=== PATIENT | female | born 1960 | race Hispanic/Latino ===

== ENCOUNTER → 2024-01-13 | Outpatient (CLI) | payer OTHER ==
[~2024-01-13] VITALS: Ht 162.6 cm; Wt 80.9 kg
[~2024-01-13] MED LIST: ACET-2743 PO; AEC81 PO; ATOR40TA69 PO; DOCU100T9 PO; ERGOCALCIFEROL PO; MECL-226 PO; METF-444 PO; METO25 PO; PROP225C8 PO; RIVA20TA PO; [UNRECOGNIZED DRUG - OTHER] PO
[2024-01-13 11:14] LABS: BASOPHILS # (AUTO) 0.05 K/uL (0.00-0.20); BASOPHILS % (AUTO) 0.8 % (0.0-5.0); EOSINOPHILS # (AUTO) 0.17 K/uL (0.00-0.70); EOSINOPHILS % (AUTO) 2.6 % (0.0-8.0); HEMATOCRIT 39.3 % (36-48); IMMATURE GRANULOCYTE ABSOLUTE 0.01 K/uL (0-1); LYMPHOCYTES # (AUTO) 2.2 K/uL (1.0-4.8); LYMPHOCYTES % (AUTO) 34.1 % (21.0-51.0); MEAN CORPUSCULAR HEMOGLOBIN 30.4 pg (27.0-33.0); MEAN CORPUSCULAR HGB CONC 33.6 g/dL (32.0-36.0); MEAN CORPUSCULAR VOLUME 90.6 fL (79-99); MONOCYTES # (AUTO) 0.4 K/uL (0.1-1.0); MONOCYTES % (AUTO) 6.2 % (3.0-13.0); NEUTROPHILS # (AUTO) 3.7 K/uL (1.8-7.7); NEUTROPHILS % (AUTO) 56.1 % (40.0-77.0); PLATELET COUNT (AUTO) 215 K/uL (130-400); RED BLOOD CELL COUNT(AUTO) 4.34 MIL/uL (4.00-5.50); RED CELL DISTRIBUTION WIDTH 12.7 % (11.0-15.5); WHITE BLOOD COUNT (AUTO) 6.6 K/uL (4.8-10.8)
[2024-01-13 11:23] LABS: CREATININE 0.9 mg/dL (0.5-1.0); POTASSIUM 4.6 mmol/L (3.5-5.1)
[2024-01-13 11:27] LABS: INR 1.13 (0.85-1.15); PROTHROMBIN TIME 13.2 SEC (9.6-11.6)
[2024-01-13 11:28] LABS: PARTIAL THROMBOPLASTIN TIME 41.6 SEC (26.3-35.5)
[2024-01-13 12:05] VITALS: BP 126/77; PULSE 77; RESP 19
== END | disposition home or self-care (01) ==
LOC: DAH 10:00 → EDSTATUS 01-18 08:00
PROVIDERS: ATTEND Internal Medicine Cardiovascular Disease
DX: I48.0 Paroxysmal atrial fibrillation (principal)
CPT/HCPCS: 36415; 80048; 85025; 85610; 85730; 93005

== ENCOUNTER → 2024-02-25 | Outpatient (CLI) | payer OTHER ==
[~2024-02-25] VITALS: Ht 165.1 cm; Wt 81.0 kg
[~2024-02-25] MED LIST changes: -ACET-2743 PO; +APIX5TAB PO; -MECL-226 PO; -PROP225C8 PO
[2024-02-25 09:09] LABS: BASOPHILS # (AUTO) 0.05 K/uL (0.00-0.20); BASOPHILS % (AUTO) 0.8 % (0.0-5.0); EOSINOPHILS # (AUTO) 0.18 K/uL (0.00-0.70); EOSINOPHILS % (AUTO) 2.8 % (0.0-8.0); HEMATOCRIT 39.3 % (36-48); IMMATURE GRANULOCYTE ABSOLUTE 0.02 K/uL (0-1); LYMPHOCYTES # (AUTO) 2.5 K/uL (1.0-4.8); LYMPHOCYTES % (AUTO) 39.6 % (21.0-51.0); MEAN CORPUSCULAR HEMOGLOBIN 30.3 pg (27.0-33.0); MEAN CORPUSCULAR HGB CONC 33.6 g/dL (32.0-36.0); MEAN CORPUSCULAR VOLUME 90.3 fL (79-99); MONOCYTES # (AUTO) 0.4 K/uL (0.1-1.0); MONOCYTES % (AUTO) 6.4 % (3.0-13.0); NEUTROPHILS # (AUTO) 3.2 K/uL (1.8-7.7); NEUTROPHILS % (AUTO) 50.1 % (40.0-77.0); PLATELET COUNT (AUTO) 214 K/uL (130-400); RED BLOOD CELL COUNT(AUTO) 4.35 MIL/uL (4.00-5.50); RED CELL DISTRIBUTION WIDTH 12.6 % (11.0-15.5); WHITE BLOOD COUNT (AUTO) 6.4 K/uL (4.8-10.8)
[2024-02-25 09:19] LABS: CREATININE 0.9 mg/dL (0.5-1.0); POTASSIUM 4.5 mmol/L (3.5-5.1)
[2024-02-25 09:29] LABS: INR 0.99 (0.85-1.15); PROTHROMBIN TIME 10.7 SEC (9.6-11.6)
[2024-02-25 09:30] LABS: PARTIAL THROMBOPLASTIN TIME 32.2 SEC (26.3-35.5)
[2024-02-25 09:39] VITALS: BP 132/82; PULSE 74; RESP 18
== END | disposition home or self-care (01) ==
LOC: DAH 10:00 → EDSTATUS 04-04 08:00
PROVIDERS: ATTEND Internal Medicine Cardiovascular Disease
DX: Z01.812 Encounter for preprocedural laboratory examination (principal); I48.0 Paroxysmal atrial fibrillation
CPT/HCPCS: 36415; 80048; 85025; 85610; 85730; 93005

== ENCOUNTER 2024-04-04 05:49 | Observation (INO) | payer OTHER ==
[2024-03-31 10:49] LABS: BASOPHILS # (AUTO) 0.05 K/uL (0.00-0.20); BASOPHILS % (AUTO) 1.1 % (0.0-5.0); EOSINOPHILS # (AUTO) 0.14 K/uL (0.00-0.70); HEMATOCRIT 39.6 % (36-48); IMMATURE GRANULOCYTE ABSOLUTE 0.01 K/uL (0-1); LYMPHOCYTES # (AUTO) 1.8 K/uL (1.0-4.8); LYMPHOCYTES % (AUTO) 38.7 % (21.0-51.0); MEAN CORPUSCULAR HEMOGLOBIN 30.3 pg (27.0-33.0); MEAN CORPUSCULAR HGB CONC 33.3 g/dL (32.0-36.0); MONOCYTES # (AUTO) 0.4 K/uL (0.1-1.0); MONOCYTES % (AUTO) 8.4 % (3.0-13.0); NEUTROPHILS # (AUTO) 2.3 K/uL (1.8-7.7); NEUTROPHILS % (AUTO) 48.6 % (40.0-77.0); PLATELET COUNT (AUTO) 216 K/uL (130-400); RED BLOOD CELL COUNT(AUTO) 4.35 MIL/uL (4.00-5.50); RED CELL DISTRIBUTION WIDTH 12.7 % (11.0-15.5); WHITE BLOOD COUNT (AUTO) 4.7 K/uL (4.8-10.8)
[2024-03-31 11:06] LABS: INR 1.01 (0.85-1.15); PROTHROMBIN TIME 10.9 SEC (9.6-11.6)
[2024-03-31 11:07] VITALS: BP 136/79; PULSE 85; RESP 19; TEMP 98
[2024-03-31 11:07] LABS: PARTIAL THROMBOPLASTIN TIME 32.2 SEC (26.3-35.5)
[2024-03-31 11:10] LABS: CREATININE 0.9 mg/dL (0.5-1.0)
[2024-04-04] VITALS (24 sets, daily range): BP systolic 87–130; BP diastolic 47–83; PULSE 65–79; RESP 13–18; TEMP 97.4–98.4; O2SAT 96
[~2024-04-04] VITALS: Ht 157.5 cm; Wt 79.6 kg
[~2024-04-04 05:49] MED LIST changes: -ERGOCALCIFEROL PO; -RIVA20TA PO; +vit d2 PO
[2024-04-04] MEDS: 0.9%NACL 1000ML 1,000 ML IV ONE (06:11)
[2024-04-04] MEDS ORDERED: dexaMETHasone SOD PHOSPHATE 10MG/ML 1ML VIAL ONE (07:09)
[2024-04-04] MEDS ORDERED: MIDAZOLAM HCL 1 MG/ML 2ML VIAL ONE (07:09)
[2024-04-04] MEDS ORDERED: SUCCINYLCHOLINE CHLORIDE 20 MG/ML 10 ML VIAL ONE (07:09)
[2024-04-04] MEDS ORDERED: GLYCOPYRROLATE 0.2 MG/ML 5 ML VIAL ONE (07:09)
[2024-04-04] MEDS ORDERED: ONDANSETRON 4MG INJ ONE (07:09)
[2024-04-04] MEDS ORDERED: LIDOCAINE PF 100MG/5ML (2%) SYRINGE 5ML ONE (07:09)
[2024-04-04] MEDS ORDERED: NEOSTIGMINE METHYLSULFATE 1MG/ML IV ONE (07:10)
[2024-04-04] MEDS ORDERED: FENTanyl CITRate PF 50 MCG/1 ML 2ML VIAL ONE ×2 (07:10→07:11)
[2024-04-04] MEDS ORDERED: proPOFol 10 MG/ML 20ML VIAL IV ONE (07:15)
[2024-04-04] MEDS ORDERED: rocuRONium bROMide 10MG/1ML 5ML VL ONE (07:16)
[2024-04-04] MEDS ORDERED: HEParin 10,000 UNIT/10ML (1,000 UNIT/ML) VIAL ONE ×2 (07:24→08:29)
[2024-04-04] MEDS ORDERED: HEParin-NS 1,000 UNIT/500 ML 1,000 ML IV ONE (07:24)
[2024-04-04] MEDS ORDERED: LIDOCAINE HCL 400MG/20ML VIAL ONE (07:24)
[2024-04-04] MEDS ORDERED: HEParin-NS 1,000 UNIT/500 ML 500 ML IV ONE (07:55)
[2024-04-04] MEDS ORDERED: PHENYLEPHRINE HCL 10 MG/ML 1ML VIAL IV ONE (11:07)
[2024-04-04] MEDS ORDERED: PROTAMINE SULFATE 10 MG/ML 5 ML VIAL ONE (12:28)
[2024-04-04] MEDS: SUGAMMADEX SODIUM 200 MG/2 ML VIAL IV ONE (12:57)
[2024-04-04] MEDS ORDERED: DOCUSATE SODIUM 100 MG PO PRN (13:30)
[2024-04-04] MEDS ORDERED: doCUSate SODIUM 100 MG CAP PO PRN (14:00)
[2024-04-04] MEDS: PANTOPRAZOLE 40 MG TAB DR PO ONE (15:58)
[2024-04-04] MEDS: SUCRALFATE 1 GM/10 ML PO SCH (15:58)
[2024-04-04] MEDS: metFORmin HCL 500 MG TABLET PO SCH (21:15)
[2024-04-04] MEDS: metoPROLOL tartRATE 25 MG TAB PO SCH (21:15)
[2024-04-04] MEDS: APIXaban 5 MG TABLET PO SCH (21:15)
[2024-04-04] MEDS: atorVAStatin 40 MG TABLET PO SCH (21:15)
[2024-04-04] MEDS: acetaMINOPHEN 325 MG TAB PO PRN (22:08)
[2024-04-05] VITALS (8 sets, daily range): BP systolic 121–138; BP diastolic 60–72; PULSE 67–78; RESP 18; TEMP 98.4–99.5; O2SAT 96
[2024-04-05] MEDS ORDERED: SUCR1ORA15 PO (08:48)
[2024-04-05] MEDS ORDERED: PANT40TA PO (08:48)
[2024-04-05] MEDS: ASPIRIN 81 MG EC TAB PO SCH (09:31)
[2024-04-05] MEDS: PANTOPRAZOLE 40 MG TAB DR PO SCH (09:31)
[2024-04-05] MEDS: ONDANSETRON 4MG INJ IVP PRN (12:32)
[2024-04-05] MEDS: ONDANSETRON 4MG INJ ONE (13:09)
[2024-04-06 04:47] VITALS: BP 144/81; PULSE 76; RESP 18; TEMP 98.4
[2024-04-06 07:45] VITALS: BP 141/66; PULSE 79; RESP 18; TEMP 99.3
[2024-04-06 08:00] VITALS: O2SAT 96
[2024-04-06 12:31] VITALS: BP 98/57; PULSE 71; RESP 18; TEMP 98.4
[2024-04-06 17:09] VITALS: BP 131/63; PULSE 82; RESP 18; TEMP 98.2
== END 2024-04-06 19:40 | disposition home or self-care (01) ==
LOC: DAH 05:49 → DAHIP 05:50 → DAH 05:50 → 2DH 14:31
PROVIDERS: ADMIT Internal Medicine Cardiovascular Disease; ATTEND Internal Medicine Cardiovascular Disease
DX: I48.0 Paroxysmal atrial fibrillation (principal); I49.5 Sick sinus syndrome; E78.5 Hyperlipidemia, unspecified; E11.9 Type 2 diabetes mellitus without complications; E03.9 Hypothyroidism, unspecified; Z86.73 Personal history of transient ischemic attack (TIA), and cerebral infarction without residual deficits; Z95.0 Presence of cardiac pacemaker; Z79.899 Other long term (current) drug therapy
CPT/HCPCS: 80048; 85025; 85610; 85730; 36415 ×2; 93005; 93656; 93657; 85347 ×8; 82948 ×2; 96374; 93308; 97161; 97530 ×2; 97116; A4344; C1894 ×2; C1732 ×3; A4649 ×2; C1766; G0378 ×53; J3010 ×2; J3490 ×3; J1100; J0330; J7030; J2001; J2720; J1644 ×4; J2250; J2704; J2405 ×2; J2710; J2371; A4215; A4223 ×3; A4222; A4221; A4663; A4216; A4606